=== PATIENT | male | born 1980 | race Caucasian/White ===

== ENCOUNTER 2019-04-26 14:42 | Emergency (ER) | payer BC ==
[2019-04-26 15:07] VITALS: BP 108/69
--- NOTE | 2019-04-26 15:51 | UC ---
Back Pain HPI - HPI Summary HPI Summary: 38 year old male presents with onset of lower back pain this morning after performing yard work. States pain has progressively worsened since this morning. Nonradiating. Aggravated by bending and twisting. Improves if he rests and lies flat. Has not taken any OTC analgesics. Reports previous low back injury when in the . Denies fever, chills, rash, chest pain, SOB, abdominal pain, nausea, vomiting, dysuria, frequency, urgency, hematuria, numbness, tingling, or weakness of the lower extremities, loss of bowel or bladder control. - History of Current Complaint Chief Complaint: UCBackPain Stated Complaint: BACK ISSUE Time Seen by Provider: 04/26/19 15:29 Hx Obtained From: Patient Pain Intensity: 7 - Allergies/Home Medications Allergies/Adverse Reactions: Allergies Allergy/AdvReac Type Severity Reaction Status Date / Time No Known Allergies Allergy Verified 04/26/19 15:04 PMH/Surg Hx/FS Hx/Imm Hx Previously Healthy: Yes - Denies significant PMH - Surgical History Surgical History: None - Family History Known Family History: Positive: Non-Contributory - Social History Occupation: Employed Full-time Lives: With Family Alcohol Use: Occasionally Substance Use Type: None Smoking Status (MU): Never Smoked Tobacco Review of Systems All Other Systems Reviewed And Are Negative: Yes Constitutional: Negative: Fever, Chills Skin: Negative: Rash Respiratory: Negative: Shortness Of Breath, Cough Cardiovascular: Negative: Palpitations, Chest Pain Gastrointestinal: Negative: Abdominal Pain, Vomiting, Diarrhea, Nausea Genitourinary: Negative: Dysuria, Hematuria, Frequency, Urgency Motor: Negative: Weakness Neurovascular: Negative: Decreased Sensation Musculoskeletal: Positive: Other: - See HPI Neurological: Positive: Negative Is Patient Immunocompromised?: No Physical Exam - Summary Physical Exam Summary: GENERAL APPEARANCE: Well developed, well nourished, alert and cooperative, and appears to be in no acute distress. CARDIAC: Normal S1 and S2. No S3, S4 or murmurs. Rhythm is regular. There is no peripheral edema, cyanosis or pallor. Extremities are warm and well perfused. Capillary refill is less than 2 seconds. Peripheral pulses intact. LUNGS: Clear to auscultation without rales, rhonchi, wheezing or diminished breath sounds. ABDOMEN: Positive bowel sounds. Soft, nondistended, nontender. No guarding or rebound. No masses or hepatosplenomegally. MUSKULOSKELETAL: ROM intact to all extremities. No joint erythema or tenderness. Normal muscular development. Normal gait. BACK: Examination of the spine reveals no midline spinal deformity or tenderness. Right lumbar paraspinous soft tissue tenderness with mild muscular spasm. NEUROLOGICAL: Strength and sensation symmetric and intact to bilateral lower extremities. SKIN: Skin normal color, texture and turgor with no lesions or eruptions. Triage Information Reviewed: Yes Vital Signs: Initial Vital Signs Temp 98.3 F 04/26/19 15:00 Pulse 82 04/26/19 15:00 Resp 18 04/26/19 15:00 BP 108/69 04/26/19 15:00 Pulse Ox 99 04/26/19 15:00 Vital Signs Reviewed: Yes Back Pain Course/Dx - Course Course Of Treatment: 38 year old male presents with onset of lower back pain this morning after performing yard work. States pain has progressively worsened since this morning. Nonradiating. Aggravated by bending and twisting. Improves if he rests and lies flat. Has not taken any OTC analgesics. Reports previous low back injury when in the . Denies fever, chills, rash, chest pain, SOB, abdominal pain, nausea, vomiting, dysuria, frequency, urgency, hematuria, numbness, tingling, or weakness of the lower extremities, loss of bowel or bladder control. Afebrile. VSS. Patient had no midline spinal deformity or tenderness. Right lumbar paraspinous soft tissue tenderness with mild muscular spasm. Strength and sensation symmetric and intact to bilateral lower extremities. Recommending conservative treatment for musculoskeletal low back pain including naproxen 500 mg BID x 5 days then PRN, cyclobenzaprine 10 mg Q8H as needed for severe pain/spasm, and heat therapy. He recently moved to the area and does not have a PCP therefore he is to follow up in the [facility] in 7 days if no improvement. He was given the contact information for the [facility] physician referral service to help establish with PCP. Anticipatory guidance and warning symptoms were reviewed with the patient. Verbalizes understanding and agrees with POC. - Differential Dx/Diagnosis Differential Diagnosis/HQI/PQRI: Herniated Disc, Renal Colic, Strain Provider Diagnosis: Acute lumbar back pain Discharge - Sign-Out/Discharge Documenting (check all that apply): Patient Departure All imaging exams completed and their final reports reviewed: No Studies - Discharge Plan Condition: Stable Disposition: HOME Prescriptions: Cyclobenzaprine HCl 10 mg PO Q8HR PRN #21 tablet PRN Reason: Spasms - Back Naproxen [Naproxen 500 mg tab] 500 mg PO BID #30 tablet Patient Education Materials: Acute Low Back Pain (ED), Lower Back Exercises (ED ) Referrals: No Primary Care Phys,NOPCP [Primary Care Provider] - [facility] PHYSICIAN REFERRAL [Outside] [facility] [Outside] - 7 Days (If symptoms do not improve. Call for appointment.) Additional Instructions: Your history and exam are consistent with low back pain of a musculoskeletal origin. Take naproxen 500 mg 1 tablet with food twice a day for the next 5 days then may take twice a day as needed. Use cyclobenzaprine 10 mg 1 tablet every 8 hours as needed for severe pain or spasm. This medication will cause drowsiness so do not take and drive or operate machinery. Use a heating pad to the affected area for 15-20 minutes to the affected area at least 4 times a day to help with pain and relax the muscles. Follow up with the [facility] in 7 days if no improvement in symptoms. Call for an appointment. I have provided you with the contact information for the [facility] physician referral service to assist you with establishing with a primary care provider. Seek immediate medical attention in the emergency room if you develop fever greater than 100.5 F, have severe pain not managed with pain medication, develop weakness, numbness, or tingling in your legs, are unable to walk, lose control of your bladder or bowels, or have any worsening of symptoms. - Billing Disposition and Condition Condition: STABLE Disposition: Home
== END 2019-04-26 16:24 | disposition home or self-care (01) ==
LOC: UCEAST 14:42
DX: M54.5 Low back pain (principal)
CPT/HCPCS: 99202; G0463